=== PATIENT | male | born 1990 ===

== ENCOUNTER 2023-09-08 22:39 | Emergency (ER) | payer MEDICARE, OTHER ==
[~2023-09-08] VITALS: Ht 162.6 cm; Wt 94.5 kg
[2023-09-08] MEDS ORDERED: RITALIN20 MG PO (22:51)
[2023-09-08 23:38] LABS: INFLUENZA B NAA NEGATIVE (NEGATIVE); RESPIRATORY SYNCYTIAL VIR NAA NEGATIVE (NEGATIVE)
[2023-09-09 00:10] VITALS: BP 123/81
== END 2023-09-09 00:10 | disposition home or self-care (01) ==
LOC: ED 22:39
PROVIDERS: Emergency Medicine
DX: J98.8 Other specified respiratory disorders (principal); B97.89 Other viral agents as the cause of diseases classified elsewhere; Z11.52 Encounter for screening for COVID-19; Z79.899 Other long term (current) drug therapy
CPT/HCPCS: 87502; C9803; U0002

== ENCOUNTER 2023-10-08 08:15 | Emergency (ER) | payer MEDICARE, OTHER ==
[~2023-10-08] VITALS: Ht 162.6 cm; Wt 96.8 kg
[~2023-10-08 08:15] MED LIST: RITALIN20 MG PO
--- OUTSIDE RECORDS SUMMARY | 2023-10-08 08:22 | XMS ---
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 Seth has no Care Guidelines for this patient. Shalonda VISIT COUNT (12 MO.) 2 [facility] TOTAL 2 NOTE: Visits indicate total known visits. ED[facility] VISIT TRACKING (12 MO.) [facility] COMPLAINT: - CHEST PAIN, FEVER, SORE THROAT, BODY ACHES 09/08/2023 22:[address] [facility] [place] TYPE: Emergency COMPLAINT: - COLD SYMPTOMS DIAGNOSES: - Cough, unspecified - Encounter for screening for COVID-19 - Other salvage determiner (current) drug therapy - Other specified respiratory disorders - Other viral agents as the cause of diseases classified elsewhere INPATIENT VISIT TRACKING (12 MO.) No inpatient visits to display in this time frame [email or web address]
[2023-10-08 09:38] LABS: INFLUENZA B NAA POSITIVE (NEGATIVE); RESPIRATORY SYNCYTIAL VIR NAA NEGATIVE (NEGATIVE)
[2023-10-08 10:13] VITALS: BP 106/78
== END 2023-10-08 10:15 | disposition home or self-care (01) ==
LOC: ED 08:15
PROVIDERS: Emergency Medicine
DX: J10.1 Influenza due to other identified influenza virus with other respiratory manifestations (principal)
CPT/HCPCS: 71046; 87502; A9270; U0002

== ENCOUNTER 2023-10-09 04:10 | Emergency (ER) | payer MEDICARE, OTHER ==
[~2023-10-09] VITALS: Ht 162.6 cm; Wt 93.2 kg
--- OUTSIDE RECORDS SUMMARY | 2023-10-09 04:14 | XMS ---
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 Seth has no Care Guidelines for this patient. Shalonda VISIT COUNT (12 MO.) 3 [facility] TOTAL 3 NOTE: Visits indicate total known visits. ED/C VISIT TRACKING (12 MO.) 10/09/2023 04:[address] [facility] [place] TYPE: Emergency COMPLAINT: - VOMITING BLOOD 10/08/2023 08:16 [facility] [place] TYPE: Emergency COMPLAINT: - CHEST PAIN, FEVER, SORE THROAT, BODY ACHES 09/08/2023 22:40 [facility] [place] TYPE: Emergency COMPLAINT: - COLD SYMPTOMS DIAGNOSES: - Cough, unspecified - Encounter for screening for COVID-19 - Other care home (current) drug therapy - Other specified respiratory disorders - Other viral agents as the cause of diseases classified elsewhere INPATIENT VISIT TRACKING (12 MO.) No inpatient visits to display in this time frame [email or web address]
[2023-10-09 04:42] LABS: HEMOGLOBIN 13.3 g/dL (12.0-18.0); MCV 86.3 fl (81-99)
[2023-10-09 04:44] LABS: HEMATOCRIT 40.3 % (35.0-50.0); MCH 28.6 (27-36); MCHC 33.1 g/dl (30-36); PLATELET COUNT 165 K/uL (140-440); RBC 4.67 M/ul (4.3-5.7); RDW 13.9 (10.5-15.0)
[2023-10-09 05:27] LABS: BANDS, MANUAL DIFF 18; BASOPHILS, MANUAL DIFF 1; EOSINOPHILS, MANUAL DIFF 7; LYMPHOCYTES, MANUAL DIFF 28; MONOCYTES, MANUAL DIFF 4; NEUTROPHILS, MANUAL DIFF 42
[2023-10-09 05:31] LABS: ANION GAP 14.5 (7-21); BUN/CREATININE RATIO 9.9 (6.0-28.6); CALCIUM 7.5 mg/dL (8.5-10.1); CREATININE, SERUM 1.11 mg/dL (0.70-1.30); POTASSIUM 3.5 mmol/L (3.5-5.1); PROTEIN, TOTAL 7.1 g/dL (6.4-8.2)
[2023-10-09 05:32] LABS: ALBUMIN 3.2 g/dL (3.4-5.0); ALBUMIN/GLOBULIN RATIO 0.82 (1.1-2.4); BILIRUBIN, TOTAL 0.2 ng/dL (0.2-1.0); INR 0.98 (0.80-1.30); PARTIAL THROMBOPLASTIN TIME 31.6 Sec (22.9-41.3); PROTIME 12.6 Sec (11.2-14.2)
[2023-10-09 05:51] VITALS: BP 117/41
== END 2023-10-09 05:52 | disposition home or self-care (01) ==
LOC: ED 04:10
PROVIDERS: Internal Medicine
DX: J10.1 Influenza due to other identified influenza virus with other respiratory manifestations (principal); R04.0 Epistaxis; R04.2 Hemoptysis; Z79.899 Other long term (current) drug therapy
CPT/HCPCS: 36415; 71045; 80053; 83690; 85025; 85610; 85730; 87651; 99284-25